=== PATIENT | male | born 2000 | race Caucasian/White ===

== ENCOUNTER 2020-12-14 18:07 | Emergency (ER) | payer OTHER, BC ==
[~2020-12-14] VITALS: Ht 172.7 cm; Wt 75.7 kg
[2020-12-14] MEDS ORDERED: HYDROCODON-ACE1 EA10 PO (20:55)
== END 2020-12-14 21:05 | disposition home or self-care (01) ==
LOC: ED 18:07
DX: S30.22XA Contusion of scrotum and testes, initial encounter (principal); W21.03XA Struck by baseball, initial encounter
CPT/HCPCS: 76870; 99283-25